=== PATIENT | male | born 1950 | race Caucasian/White ===

== ENCOUNTER 2021-03-27 09:12 | Inpatient (IN) | payer OTHER ==
[2021-03-27 09:55] LABS: Absolute Lymphocytes (CBC) 1.2 K/uL (0.7-4.9); Hematocrit 32.5 % (39.6-49.0); Lymphocytes % 29.4 % (15.3-44.8); MPV 7.8 fL (7.6-11.3); RBC Red Blood Cell Count 3.61 M/uL (4.33-5.43)
[2021-03-27 09:56] LABS: Protime INR 1.15
--- NOTE | 2021-03-27 10:24 | EDPHYS ---
Physician Documentation [facility] Name: Carl Atkinson Age: 70 yrs Sex: Male : 1950 Arrival Date: 03/27/2021 Time: 09:13 Bed 3 Private MD: ED Physician Jimbo Otero HPI: 03/27 10:19 This 70 yrs old Male presents to ER via EMS with complaints of Rectal zenaida Bleeding, Abdominal Pain, Vomiting. 10:19 The patient presents to the emergency department with bleeding from the rectum/anus, zenaida that is moderate. Onset: The symptoms/episode began/occurred today, yesterday. Context: the patient has no known special context relating to the rectal area complaint(s). Modifying factors: The symptoms are alleviated by remaining still, The symptoms are aggravated by nothing. Historical: - Allergies: 09:15 No Known Allergies; sv - PMHx: 09:15 COPD; sv - PSHx: 09:15 C4\T\5 fusion; sv - Immunization history:: Adult Immunizations up to date. - Social history:: Smoking status: Patient uses alcohol, occasionally. ROS: 10:20 Constitutional: Negative for fever, chills, and weight loss, Eyes: Negative for injury, zenaida pain, redness, and discharge, ENT: Negative for injury, pain, and discharge, Neck: Negative for injury, pain, and swelling, Cardiovascular: Negative for chest pain, palpitations, and edema, Respiratory: Negative for shortness of breath, cough, wheezing, and pleuritic chest pain, Back: Negative for injury and pain, : Negative for injury, bleeding, discharge, and swelling, MS/Extremity: Negative for injury and deformity, Skin: Negative for injury, rash, and discoloration, Neuro: Negative for headache, weakness, numbness, tingling, and seizure, Psych: Negative for depression, anxiety, suicide ideation, homicidal ideation, and hallucinations, Allergy/Immunology: Negative for hives, rash, and allergies, Endocrine: Negative for neck swelling, polydipsia, polyuria, polyphagia, and marked weight changes, Hematologic/Lymphatic: Negative for swollen nodes, abnormal bleeding, and unusual bruising. 10:20 Abdomen/GI: Positive for abdominal pain, abdominal cramps. Exam: 10:20 Constitutional: This is a well developed, well nourished patient who is awake, alert, zenaida and in no acute distress. Head/Face: Normocephalic, atraumatic. Eyes: Pupils equal round and reactive to light, extra-ocular motions intact. Lids and lashes normal. Conjunctiva and sclera are non-icteric and not injected. Cornea within normal limits. Periorbital areas with no swelling, redness, or edema. ENT: Nares patent. No nasal discharge, no septal abnormalities noted. Tympanic membranes are normal and external auditory canals are clear. Oropharynx with no redness, swelling, or masses, exudates, or evidence of obstruction, uvula midline. Mucous membranes moist. Neck: Trachea midline, no thyromegaly or masses palpated, and no cervical lymphadenopathy. Supple, full range of motion without nuchal rigidity, or vertebral point tenderness. No Meningismus. Chest/axilla: Normal chest wall appearance and motion. Nontender with no deformity. No lesions are appreciated. Cardiovascular: Regular rate and rhythm with a normal S1 and S2. No gallops, murmurs, or rubs. Normal PMI, no JVD. No pulse deficits. Respiratory: Lungs have equal breath sounds bilaterally, clear to auscultation and percussion. No rales, rhonchi or wheezes noted. No increased work of breathing, no retractions or nasal flaring. Back: No spinal tenderness. No costovertebral tenderness. Full range of motion. Male : Normal genitalia with no discharge or lesions. MS/ Extremity: Pulses equal, no cyanosis. Neurovascular intact. Full, normal range of motion. Neuro: Awake and alert, GCS 15, oriented to person, place, time, and situation. Cranial nerves II-XII grossly intact. Motor strength 5/5 in all extremities. Sensory grossly intact. Cerebellar exam normal. Normal gait. Psych: Awake, alert, with orientation to person, place and time. Behavior, mood, and affect are within normal limits. 10:20 Abdomen/GI: Inspection: abdomen appears normal, Bowel sounds: normal, Palpation: abdomen is soft and non-tender, Rectal exam: Stool: guaiac positive, black, hemorrhoid(s), are not appreciated, mass, is not appreciated, swelling, is not appreciated, Liver: no appreciated palpable abnormalities, Hernia: not appreciated. 10:26 ECG was reviewed by the Attending Physician. [facility] Vital Signs: 09:13 BP 111 / 62; Pulse 75; Resp 14; Temp 97.1; Pulse Ox 100% ; Weight 81.65 kg; Height 6 sv ft. 1 in. (185.42 cm); Pain 10/10; 10:00 BP 89 / 65; Pulse 72; Resp 21; Pulse Ox 100% on R/A; sv 11:00 BP 124 / 65; Pulse 70; Resp 19; Pulse Ox 100% ; sv 11:45 BP 110 / 68; Pulse 73; Resp 20; Pulse Ox 100% on R/A; sv 12:30 BP 116 / 63; Pulse 70; Resp 17; Pulse Ox 100% on R/A; sv 09:13 Body Mass Index 23.75 (81.65 kg, 185.42 cm) sv MDM: 09:32 Patient medically screened. zenaida 10:21 Differential diagnosis: gastritis, varices. Data reviewed: vital signs, nurses notes, [facility] lab test result(s), EKG, radiologic studies, plain films. Data interpreted: threat monitoring analyst: rate is 75 beats/min, rhythm is regular, Pulse oximetry: on room air is 100 %. Test interpretation: by ED physician or midlevel provider: ECG, plain radiologic studies. Counseling: I had a detailed discussion with the patient and/or guardian regarding: the historical points, exam findings, and any diagnostic results supporting the discharge/admit diagnosis, lab results, radiology results, the need for further work-up and treatment in the hospital. 03/27 09:31 Order name: Basic Metabolic Panel; Complete Time: 12:[address] [facility] 03/27 09:31 Order name: CBC with Diff; Complete Time: 12:[address] [facility] 03/27 09:31 Order name: LFT's; Complete Time: 12:[address] [facility] 03/27 09:31 Order name: Magnesium; Complete Time: 12:[address] [facility] 03/27 09:31 Order name: NT PRO-BNP; Complete Time: 12:[address] [facility] 03/27 09:31 Order name: PT-INR; Complete Time: 12:[address] [facility] 03/27 09:31 Order name: Troponin (emerg Dept Use Only); Complete Time: 12:[address] [facility] 03/27 09:31 Order name: Lipase; Complete Time: 12:[address] [facility] 03/27 09:31 Order name: Type And Screen; Complete Time: 12:[address] [facility] 03/27 10:33 Order name: Bb Add On bd 03/27 10:52 Order name: Packed RBC Leukored EDVT 03/27 10:57 Order name: ABO/RH no charge; Complete Time: 12:16 EDVT 03/27 11:42 Order name: Troponin I [facility] 03/27 09:31 Order name: XRAY Chest (1 view); Complete Time: 12:[address] [facility] 03/27 09:31 Order name: EKG; Complete Time: 09:[address] [facility] 03/27 09:31 Order name: Cardiac monitoring; Complete Time: 09:[address] [facility] 03/27 09:31 Order name: EKG - Nurse/Tech; Complete Time: 09:[address] [facility] 03/27 09:31 Order name: IV Saline Lock; Complete Time: 09:[address] [facility] 03/27 09:31 Order name: Labs collected and sent; Complete Time: 09:[address] [facility] 03/27 09:31 Order name: O2 Per Protocol; Complete Time: 09:[address] [facility] 03/27 09:31 Order name: O2 Sat Monitoring; Complete Time: 09:[address] [facility] 03/27 10:03 Order name: CT Head Brain wo Cont; Complete Time: 12:16 03/27 10:03 Order name: CT Abd/Pelvis - IV Contrast Only; Complete Time: 12:16 03/27 11:42 Order name: NPO; Complete Time: 11:50 [facility] 03/27 13:25 Order name: SARS-COV-2 RT PCR EDVT 03/27 09:31 Order name: IV - Large Bore; Complete Time: 09:[address] [facility] 03/27 10:14 Order name: Labs - recollect needed: recollect type and screen. tube hemolyzed; bd Complete Time: 10:35 EC:26 Rate is 78 beats/min. Rhythm is regular. QRS [place] is Normal. MS interval is normal. QRS zenaida interval is normal. QT interval is normal. No Q waves. T waves are Normal. No ST changes noted. Clinical impression: NSR w/ Non-specific ST/T Changes and No evidence of ischemia. Interpreted by me. Reviewed by me. Administered Medications: 10:35 Drug: ProTONIX (pantoprazole) 80 mg Route: IVP; Site: left forearm; sv 11:24 Follow up: Response: No adverse reaction sv 11:24 Drug: NS 0.9% 1000 ml Route: IV; Rate: 1 bolus; Site: left forearm; sv 12:30 Follow up: Response: No adverse reaction; IV Status: Completed infusion; IV Intake: sv 1000ml 11:24 Drug: ProTONIX (pantoprazole) 8 mg/hr Route: IV; Rate: 25 ml/hr; Site: left forearm; sv 13:32 Follow up: Response: No adverse reaction; IV Status: Infusion continued upon admission sv 11:25 Drug: NS 0.9% 1000 ml Route: IV; Rate: 125 ml/hr; Site: left forearm; sv 13:32 Follow up: Response: No adverse reaction; IV Status: Infusion continued upon admission sv Disposition Summary: 03/27/21 10:23 Hospitalization Ordered Hospitalization Status: Inpatient Admission zenaida Provider: Eriberto Holley cha Condition: Stable zenaida Problem: new zenaida Symptoms: have improved zenaida Bed/Room Type: Standard zenaida Location: Telemetry/MedSurg (Inpatient)(03/27/21 15:41) sv Room Assignment: 210(03/27/21 15:41) sv Diagnosis - GI Bleed/ Gastrointestinal hemorrhage, unspecified - upper zenaida - Anemia, unspecified zenaida Forms: - Medication Reconciliation Form zenaida - SBAR form zenaida Signatures: Dispatcher [employer] EDMS Cassy Leigh Stephanie, RN RN sv Anderson, Corey, MD MD zenaida Corrections: (The following items were deleted from the chart) 12:18 11:52 CORONAVIRUS+BRZ ordered. EDMS EDMS 13:05 10:23 Telemetry/MedSurg (Inpatient) zenaida sv 13:05 10:23 zenaida sv 15:34 13:05 [facility] ER HOLD sv bd 15:34 13:05 ERHOLD- sv bd 15:40 15:34 Telemetry/MedSurg (Inpatient) bd sv 15:40 15:34 210 bd sv 15:41 15:40 [facility] ER HOLD sv sv 15:41 15:40 ERHOLD- sv sv
--- NOTE | 2021-03-27 10:24 | ER ---
Nurse's Notes [facility] Name: Carl Atkinson Age: 70 yrs Sex: Male : 1950 Arrival Date: 03/27/2021 Time: 09:13 Bed 3 Private MD: Diagnosis: GI Bleed/ Gastrointestinal hemorrhage, unspecified-upper;Anemia, unspecified Presentation: 03/27 09:13 Chief complaint: EMS states: found by family laying on the floor of the bathroom, sv unknown downtime. Pt vomited dark red blood and had dark red stools. c/o neck pain from vomiting and abd pain. Coronavirus screen: Vaccine status: Patient reports receiving the 1st dose of the Covid vaccine. J\T\J. Ebola Screen: No symptoms or risks identified at this time. Initial Sepsis Screen: Does the patient meet any 2 criteria? No. Patient's initial sepsis screen is negative. Does the patient have a suspected source of infection? No. Patient's initial sepsis screen is negative. Risk Assessment: Do you want to hurt yourself or someone else? Patient reports no desire to harm self or others. Onset of symptoms was March 27, 2021. 09:13 Method Of Arrival: [facility] sv 09:13 Acuity: LEONIDAS 3 sv Triage Assessment: 09:15 General: Appears in no apparent distress. uncomfortable, slender, well developed, sv Behavior is calm, cooperative, appropriate for age. Pain: Complains of pain in abdomen. Neuro: Level of Consciousness is awake, alert, obeys commands, Oriented to person, place, time, situation, Gait is steady. Respiratory: Airway is patent Respiratory effort is even, unlabored, Respiratory pattern is regular, symmetrical. GI: Abdomen is flat, Reports rectal bleeding, nausea, vomiting. Derm: Skin is intact, Skin is pink, warm \T\ dry. Historical: - Allergies: 09:15 No Known Allergies; sv - PMHx: 09:15 COPD; sv - PSHx: 09:15 C4\T\5 fusion; sv - Immunization history:: Adult Immunizations up to date. - Social history:: Smoking status: Patient uses alcohol, occasionally. Screenin:16 Abuse screen: Denies threats or abuse. Denies injuries from another. Nutritional sv screening: No deficits noted. Tuberculosis screening: No symptoms or risk factors identified. Fall Risk None identified. Assessment: 10:35 Reassessment: Patient appears in no apparent distress at this time. No changes from sv previously documented assessment. Patient and/or family updated on plan of care and expected duration. Pain level reassessed. Patient is alert, oriented x 3, equal unlabored respirations, skin warm/dry/pink. 11:24 Reassessment: Patient appears in no apparent distress at this time. No changes from sv previously documented assessment. Patient and/or family updated on plan of care and expected duration. Pain level reassessed. Patient is alert, oriented x 3, equal unlabored respirations, skin warm/dry/pink. 13:04 Reassessment: Patient appears in no apparent distress at this time. Patient and/or sv family updated on plan of care and expected duration. Pain level reassessed. Patient is alert, oriented x 3, equal unlabored respirations, skin warm/dry/pink. Vital Signs: 09:13 BP 111 / 62; Pulse 75; Resp 14; Temp 97.1; Pulse Ox 100% ; Weight 81.65 kg; Height 6 sv ft. 1 in. (185.42 cm); Pain 10/10; 10:00 BP 89 / 65; Pulse 72; Resp 21; Pulse Ox 100% on R/A; sv 11:00 BP 124 / 65; Pulse 70; Resp 19; Pulse Ox 100% ; sv 11:45 BP 110 / 68; Pulse 73; Resp 20; Pulse Ox 100% on R/A; sv 12:30 BP 116 / 63; Pulse 70; Resp 17; Pulse Ox 100% on R/A; sv 09:13 Body Mass Index 23.75 (81.65 kg, 185.42 cm) sv ED Course: 09:13 Patient arrived in ED. sv 09:13 Aline Lugo, RN is Primary Nurse. sv 09:15 Triage completed. sv 09:15 Arm band placed on. sv 09:16 Patient has correct armband on for positive identification. Placed in gown. Bed in low sv position. Call light in reach. Side rails up X2. bus monitor on. Pulse ox on. NIBP on. Door closed. Head of bed elevated. 09:25 Jimbo Otero MD is Attending Physician. [facility] 09:30 Inserted saline lock: 20 gauge in left forearm, using aseptic technique. Blood sv collected. Flushed left forearm with 2 ml normal saline. 09:30 T\T\S collected, blood band applied to patient. sv 10:20 XRAY Chest (1 view) In Process Unspecified. EDMS 10:23 Eriberto Holley MD is Hospitalizing Provider. zenaida 10:30 T\T\S collected, blood band applied to patient. sv 10:[address] via stretcher. sv 10:43 CT Head Brain wo Cont In Process Unspecified. EDMS 10:45 CT Abd/Pelvis - IV Contrast Only In Process Unspecified. EDMS 10:[address] Patient moved back from [address]. sv 13:04 No provider procedures requiring assistance completed. Patient admitted, IV remains in sv place. intact. Administered Medications: 10:35 Drug: ProTONIX (pantoprazole) 80 mg Route: IVP; Site: left forearm; sv 11:24 Follow up: Response: No adverse reaction sv 11:24 Drug: NS 0.9% 1000 ml Route: IV; Rate: 1 bolus; Site: left forearm; sv 12:30 Follow up: Response: No adverse reaction; IV Status: Completed infusion; IV Intake: sv 1000ml 11:24 Drug: ProTONIX (pantoprazole) 8 mg/hr Route: IV; Rate: 25 ml/hr; Site: left forearm; sv 13:32 Follow up: Response: No adverse reaction; IV Status: Infusion continued upon admission sv 11:25 Drug: NS 0.9% 1000 ml Route: IV; Rate: 125 ml/hr; Site: left forearm; sv 13:32 Follow up: Response: No adverse reaction; IV Status: Infusion continued upon admission sv Intake: 12:30 IV: 1000ml; Total: 1000ml. sv Outcome: 10:23 Decision to Hospitalize by Provider. zenaida 13:04 Admitted to ER Hold. Please see [facility] for further documentation. sv 13:04 Condition: stable 13:04 Instructed on the need for admit. 16:26 Patient left the ED. sv Signatures: Dispatcher [employer] Aline Donato RN RN sv Anderson, Corey, MD MD cha
[2021-03-27 10:25] LABS: ALT/SGPT 108 U/L (12-78); AST/SGOT 111 U/L (15-37); Alkaline Phosphatase 65 U/L (45-117); BUN Blood Urea Nitrogen 44 mg/dL (7-18); Bicarbonate 23 mmol/L (21-32); Bilirubin Direct 0.3 mg/dL (0-0.2); Bilirubin Total 0.8 mg/dL (0.2-1.0); Glucose Level 95 mg/dL (74-106); Lipase 79 U/L (73-393); NT PRO-BNP 85 pg/mL (<125); Potassium 4.5 mmol/L (3.5-5.1); Protein, Total 6.9 g/dL (6.4-8.2); Sodium Level 140 mmol/L (136-145); Troponin (Emerg Dept Use Only) < 0.02 ng/mL (0.0-0.045)
--- NOTE | 2021-03-27 10:31 | RAD REPORT ---
EXAM DESCRIPTION: RAD - Chest Single View - 03/27/2021 10:20 am CLINICAL HISTORY: COUGH COMPARISON: No comparisons FINDINGS: Lines: None. Lungs: No evidence of edema or pneumonia. Pleural: No significant pleural effusions or pneumothorax. Cardiac: The heart size is within normal limits. Bones: No acute fractures. Other: IMPRESSION: No acute cardiopulmonary disease.
[2021-03-27] MEDS ORDERED: PANTOPRAZOLE 40 MG INJ ONE (10:52)
[2021-03-27] MEDS ORDERED: NA CHLORIDE 0.9% 2,000 ML ONE (10:52)
--- NOTE | 2021-03-27 10:56 | RAD REPORT ---
EXAM DESCRIPTION: CT - Head Brain Wo Cont - 03/27/2021 10:43 am CLINICAL HISTORY: WEAKNESS COMPARISON: No comparisons TECHNIQUE: All CT scans are performed using dose optimization technique as appropriate and may inclu de automated exposure control or mA/KV adjustment according to patient size. FINDINGS: No intracranial hemorrhage, hydrocephalus or extra-axial fluid collection.No areas of brai n edema or evidence of midline shift. The paranasal sinuses and mastoids are clear. The calvarium is intact. IMPRESSION: No acute intracranial abnormality.
[2021-03-27] MEDS: PANTOPRAZOLE INJ 80 MG in NA CHLORIDE 0.9% 250 ML IV SCH ×3 (11:00→22:19)
--- NOTE | 2021-03-27 11:05 | RAD REPORT ---
EXAM DESCRIPTION: CTAbdomen Pelvis W Contrast - 03/27/2021 10:45 am CLINICAL HISTORY: . ABD PAIN COMPARISON: No comparisons TECHNIQUE: Biphasic CT imaging of the abdomen and pelvis was performed with 100 ml non-ionic IV cont rast. All CT scans are performed using dose optimization technique as appropriate and may include automated exposure control or mA/KV adjustment according to patient size. FINDINGS: Lower chest: Small hiatal hernia. Lower paraesophageal and esophageal varices are present. Liver: Nodular liver configuration. Biliary: No biliary ductal dilatation. Stomach: No significant focal abnormality. Duodenum: No significant focal abnormality. Pancreas: No significant abnormality. Spleen: No significant abnormality. Adrenal: No suspicious lesions. Kidney/ureter: No hydronephrosis. No renal calculi. Too small to characterize and/or benign appearing renal lesions are noted. Retroperitoneum: Prominent portacaval lymph nodes. Vascular: No aneurysm. Atherosclerosis. Bowel: The ascending and transverse colon are thickened. Peritoneum: There is small volume of free fluid scattered throughout the abdomen including in the Bladder: Grossly unremarkable. Reproductive: No adnexal masses. Bones: No acute fracture. Other: n/a IMPRESSION: Cirrhosis and evidence of portal hypertension including paraesophageal and esophageal va rices. Small volume of free fluid is present within the abdomen and pelvis that is nonspecific and co uld be secondary to either portal hypertension or an alternate process. Ascending and transverse colo britni wall thickening possibly representing colitis but can also be seen in the setting of portal colop athy.
[2021-03-27] MEDS ORDERED: LABETALOL 20 MG/4ML SYRINGE IV PRN (11:36)
[2021-03-27] MEDS ORDERED: ONDANSETRON 4 MG/2 ML VIAL IV PRN (11:37)
[2021-03-27] MEDS ORDERED: MORPHINE 4 MG/ML SYR IV PRN (11:40)
--- NOTE | 2021-03-27 11:50 | P.HP ---
Certification for Inpatient Patient admitted to: Inpatient Patient will require the following post-hospital care: None Practitioner: I am a practitioner with admitting privileges, knowledge of patient current condition, hospital course, and medical plan of care. Services: Services provided to patient in accordance with Admission requirements found in Title 42 Section 412.3 of the Code of Federal Regulations <Herminia Mosquera - Last Filed: 03/27/21 17:44> Patient History Date of Service: 03/27/21 Reason for admission: GI bleeding History of Present Illness: Patient is a 70-year-old male with a past medical history significant for COPD and liver cirrhosis who presents with complaint of rectal bleeding and hematemesis that has been ongoing for the past 2 days. Patient reports associated signs and symptoms of dizziness and near syncope. Patient denies any other signs or symptoms. Symptoms are aggravated or relieved by nothing. Magaly ent decided to present to the hospital due to worsening symptoms. - Past Medical/Surgical History Diabetic: No -: Cirrhosis -: COPD. Past Surgical History: Reviewed- Non-Contributory - Family History Family History: Reviewed- Non-Contributory - Social History Smoking Status: Former smoker Alcohol use: Yes CD- Drugs: No Caffeine use: No Place of Residence: Home <Herminia Mosquera - Last Filed: 03/27/21 17:44> Date of Service: 03/27/21 <Eriberto Holley - Last Filed: 03/29/21 11:06> Allergies No Known Allergies Allergy (Unverified 03/27/21 11:35) Home Medications: Albuterol Inhaler [Ventolin Inhaler] 2 puff IH Q6H PRN 03/27/21 Ibuprofen 3 tab PO DAILY 03/27/21 Tiotropium [place] [Spiriva Respimat] 2 puff IH DAILY 03/27/21 Review of Systems General: Unremarkable Eyes: Unremarkable ENT: Unremarkable Respiratory: Unremarkable Cardiovascular: Unremarkable Gastrointestinal: Other (Rectal bleeding and hematemesis.) Genitourinary: Unremarkable Musculoskeletal: Unremarkable Integumentary: Unremarkable Neurological: Other (Dizziness and near syncope.), Unremarkable Lymphatics: Unremarkable <Herminia Mosquera - Last Filed: 03/27/21 17:44> Physical Examination - Physical Exam General: Alert, In no apparent distress, Oriented x3 HEENT: Atraumatic, PERRLA, Mucous membr. moist/pink, EOMI, Sclerae nonicteric Neck: Supple, 2+ carotid pulse no bruit, No LAD, Without JVD or thyroid abnormality Respiratory: Clear to auscultation bilaterally, Normal air movement Cardiovascular: Regular rate/rhythm, Normal S1 S2 Gastrointestinal: Normal bowel sounds, No tenderness Musculoskeletal: No clubbing, No tenderness Integumentary: No rashes Neurological: Normal gait, Normal speech, Normal strength at 5/5 x4 extr, Normal tone, Normal affect Lymphatics: No axilla or inguinal lymphadenopathy External genitalia: Deferred Rectal: Deferred - Studies Laboratory Data (last 24 hrs) 03/27/21 09:30: PT 13.3 H, INR 1.15 03/27/21 09:30: WBC 4.00 L, Hgb 10.9 L, Hct 32.5 L, Plt Count 127 L 03/27/21 09:30: Sodium 140, Potassium 4.5, BUN 44 H, Creatinine 0.89, Glucose 95, Magnesium 2.0, Total Bilirubin 0.8, AST 111 H, ALT 108 H, Alkaline Phosphatase 65, Lipase 79 <Herminia Mosquera - Last Filed: 03/27/21 17:44> Assessment and Plan - Plan --Gastrointestinal bleeding. H&H stable. Gastroenterology is consulted. We will further recommendation. --Decompensated cirrhosis. CT imaging indicates portal hypertension with paraesophageal and esophageal varices. Security Operations Engineer on board. Will await further recommendations. --Colitis. Noted on CT imaging. Patient placed on antibiotics. --COPD. Stable. Continue supportive care. --Blood loss anemia. H&H stable. We will continue to monitor hemoglobin and transfuse if less than 7.0. --Near syncope. Likely secondary to GIB. H&H stable. Continue supportive care. --Thrombocytopenia. Secondary to liver disease. Continue supportive care. --DVT prophylaxis with SCDs. I have had discussion about advanced directives with the patient during this hospital admission. Addressed code status and /or goals of care. Spent more than 15 minutes. Case discussed withpatient and nurse. The following document was completed using voice recognition software. This can produce archeology professor errors that can at times significantly distort words and phrases. Please interpret any aspect of the note that is nonsensical in light of this fact. Discharge Plan: Home Plan to discharge in: 48 Hours - Advance Directives Does patient have a Living Will: No Does patient have a Durable POA for Healthcare: No - Code Status/Comfort Care Code Status Assessed: Yes Code Status: Full Code Physician Review: Patient Assessed, Agree with Above Assessment and Plan Critical Care: No <Herminia Mosquera - Last Filed: 03/27/21 17:44> - Problems (Diagnosis) (1) UGIB (upper gastrointestinal bleed) Current Visit: Yes Status: Acute (2) Melena Current Visit: Yes Status: Acute <Falguni Holleymiguel angel Taylor - Last Filed: 03/29/21 11:06> Date of Service: 03/27/21 Subjective Reviewed plan of care as mentioned above Review of Systems 10-point ROS is otherwise unremarkable Physical Examination - Vital Signs Reviewed - Physical Exam General: Alert, In no apparent distress, Oriented x3 Respiratory: Diminished Cardiovascular: Regular rate/rhythm, Normal S1 S2, No murmurs Gastrointestinal: Normal bowel sounds, Soft and benign, Non-distended, No tenderness Musculoskeletal: No clubbing, No swelling, No tenderness Integumentary: No rashes Neurological: Sensation intact, Cranial nerves 3-12 intact - Studies Medications List Reviewed: Yes Assessment & Plan - Problems (Diagnosis) (1) UGIB (upper gastrointestinal bleed) Current Visit: Yes Status: Acute (2) Melena Current Visit: Yes Status: Acute - Plan Plan: 1. Continue with IV hydration and PPI drip 2. Continue with IV antibiotics 3. Continue with pain control 4. NPO 5. GI consultation 6. Serial H&H, and we will monitor LFTs and lipase along with electrolytes. 7. GI and DVT prophylaxis Discharge Plan: Home Plan to discharge in: Greater than 2 days - Advance Directives Does patient have a Living Will: No Does patient have a Durable POA for Healthcare: No - Code Status/Comfort Care Code Status: Full Code Physician Review: Patient Assessed, Agree with Above Assessment and Plan Critical Care: No Time Spent Managing PTS Care (In Minutes): 45 <Falguni Holleymiguel angel Vazquez - Last Filed: 03/29/21 11:06>
[2021-03-27 17:02] VITALS: BMI 22.5
[2021-03-27 18:05] LABS: Absolute Lymphocytes (CBC) 1.2 K/uL (0.7-4.9)
[2021-03-27 18:13] LABS: Basophils % 0.8 % (0-1.3); Hematocrit 27.9 % (39.6-49.0); Lymphocytes % 33.3 % (15.3-44.8); MPV 8.2 fL (7.6-11.3); RBC Red Blood Cell Count 3.12 M/uL (4.33-5.43)
[2021-03-27 20:22] LABS: Blood Morphology Comment NOT SEEN (NOT SEEN); Platelet Estimate DECR; White Blood Cell Scan OK (OK)
[2021-03-27 20:47] LABS: Urine Appearance CLEAR (Clear); Urine Bilirubin NEGATIVE (Negative); Urine Blood NEGATIVE (Negative); Urine Color YELLOW (Yellow); Urine Glucose NEGATIVE (Negative); Urine Protein NEGATIVE (Negative); Urine Specific Gravity >=1.030 (1.005-1.030); Urine pH 5.5 (5.0-7.0)
[2021-03-27 20:57] LABS: Urine Microscopic Reflex NO UMIC
[2021-03-27] MEDS ORDERED: PANTOPRAZOLE INJ 80 MG in NA CHLORIDE 0.9% 250 ML IV SCH (21:00)
[2021-03-27] MEDS: METRONIDAZOLE 500mg IVPB 500 MG/100 ML BAG IV SCH (22:15)
[2021-03-27] MEDS: CIPROFLOXACIN 400mg IV 400 MG/200 ML BAG IV SCH (22:19)
[2021-03-27] MEDS ORDERED: NA CHLORIDE 0.9% 250 ML ONE (22:35)
[2021-03-28] MEDS ORDERED: PANTOPRAZOLE INJ 80 MG in NA CHLORIDE 0.9% 250 ML IV SCH ×2
[2021-03-28] MEDS: METRONIDAZOLE 500mg IVPB 500 MG/100 ML BAG IV SCH ×3 (02:04→17:00)
[2021-03-28 05:59] LABS: Absolute Lymphocytes (CBC) 1.2 K/uL (0.7-4.9); Basophils % 0.6 % (0-1.3); Lymphocytes % 23.4 % (15.3-44.8); MPV 7.7 fL (7.6-11.3); RBC Red Blood Cell Count 2.78 M/uL (4.33-5.43)
[2021-03-28 06:07] LABS: Potassium 4.1 mmol/L (3.5-5.1)
[2021-03-28 06:18] LABS: Protime INR 1.09
[2021-03-28 07:56] LABS: Blood Morphology Comment NOT SEEN (NOT SEEN); Platelet Estimate DECR; White Blood Cell Scan OK (OK)
[2021-03-28] MEDS: PANTOPRAZOLE INJ 80 MG in NA CHLORIDE 0.9% 250 ML IV SCH ×3 (09:36→22:05)
[2021-03-28] MEDS: CIPROFLOXACIN 400mg IV 400 MG/200 ML BAG IV SCH ×2 (09:37→21:12)
--- NOTE | 2021-03-28 11:30 | EKG ---
Test Date: 2021-03-27 Test Time: 09:29:57 Sample Steamer: DAVID MEASUREMENT RESULTS: Intervals: Rate: 78 TX: 108 QRSD: 58 QT: 384 QTc: 437 [place]: P: 18 TX: 108 QRS: 18 T: -30 INTERPRETIVE STATEMENTS: Sinus rhythm with short TX with premature atrial complexes Nonspecific ST abnormality Abnormal ECG No previous ECG available for comparison Electronically Signed On 03-28-21 11:27:07 CDT by Jason Davis
[2021-03-28] MEDS ORDERED: Ringers Lactate 1,000 ML IV ONE (14:47)
[2021-03-28] MEDS ORDERED: LIDOCAINE 1% MPF 5 ML VIAL ONE (15:55)
[2021-03-28] MEDS ORDERED: propofoL 200 MG/20 ML VIAL IV ONE ×2 (15:55)
[2021-03-28] MEDS ORDERED: ONDANSETRON 4 MG/2 ML VIAL ONE (16:28)
[2021-03-28] MEDS: OCTREOTIDE 500 MCG in NA CHLORIDE 0.9% 500 ML IV SCH (23:32)
[2021-03-28] MEDS ORDERED: OCTREOTIDE ACETATE 500 MCG/ML ONE (23:41)
[2021-03-28] MEDS ORDERED: NA CHLORIDE 0.9% 500 ML ONE (23:44)
[2021-03-29] MEDS: METRONIDAZOLE 500mg IVPB 500 MG/100 ML BAG IV SCH ×3 (00:39→17:16)
[2021-03-29] MEDS: PANTOPRAZOLE INJ 80 MG in NA CHLORIDE 0.9% 250 ML IV SCH ×4 (04:00→17:55)
[2021-03-29] MEDS: OCTREOTIDE 500 MCG in NA CHLORIDE 0.9% 500 ML IV SCH ×4 (05:19→19:00)
[2021-03-29 06:00] LABS: Absolute Lymphocytes (CBC) 0.9 K/uL (0.7-4.9); Basophils % 0.7 % (0-1.3); Lymphocytes % 30.9 % (15.3-44.8); MPV 8.1 fL (7.6-11.3); RBC Red Blood Cell Count 2.86 M/uL (4.33-5.43)
[2021-03-29] MEDS: CIPROFLOXACIN 400mg IV 400 MG/200 ML BAG IV SCH ×2 (08:18→21:00)
--- NOTE | 2021-03-29 11:01 | P.PN ---
Subjective Date of Service: 03/28/21 Pt is doing well; scheduled for EGD today. Continue NPO for now. Review of Systems 10-point ROS is otherwise unremarkable Physical Examination - Vital Signs Temperature: 98.9 F Blood Pressure: 127/73 Pulse: 75 Respirations: 16 Pulse Ox (%): 100 - Physical Exam General: Alert, In no apparent distress, Oriented x3 Respiratory: Diminished Cardiovascular: Regular rate/rhythm, Normal S1 S2, No murmurs Gastrointestinal: Normal bowel sounds, Soft and benign, Non-distended, No tenderness Musculoskeletal: No clubbing, No swelling, No tenderness Integumentary: No rashes Neurological: Sensation intact, Cranial nerves 3-12 intact - Studies Medications List Reviewed: Yes Assessment & Plan - Problems (Diagnosis) (1) UGIB (upper gastrointestinal bleed) Current Visit: Yes Status: Acute (2) Melena Current Visit: Yes Status: Acute - Plan Plan: 1. Continue with IV hydration and PPI drip 2. Continue with IV antibiotics 3. Continue with pain control 4. NPO 5. GI consultation 6. Serial H&H, and we will monitor LFTs and lipase along with electrolytes. 7. GI and DVT prophylaxis Discharge Plan: Home Plan to discharge in: Greater than 2 days - Advance Directives Does patient have a Living Will: No Does patient have a Durable POA for Healthcare: No - Code Status/Comfort Care Code Status: Full Code Physician Review: Patient Assessed, Agree with Above Assessment and Plan Critical Care: No Time Spent Managing PTS Care (In Minutes): 45
--- NOTE | 2021-03-29 15:18 | OP ---
Surgeon: Philip Sebastian MD Procedure Performed: Esophagogastroduodenoscopy. Indication For Procedure: Upper GI bleed. Plan For Anesthesia: Monitored anesthesia care. Complexity: Average. Technique: After obtaining informed consent from the patient explaining risks and complications, whi ch include, but are not limited to bleeding, infection, perforation, and anesthesia complications, th e patient was placed in the left lateral position and sedation was given. From then on, the scope wa s advanced to the mouth and carefully guided up to the second portion of the duodenum. No evidence o f active bleeding was seen, but stigmata that may increase risk of bleeding in the future were visual ized and treated as detailed below. Findings: Duodenum: No significant abnormality seen in the entire examined duodenum. Stomach: Mild patchy erythema in the antrum and body. Biopsies taken. Esophagus: Esophagitis was seen in the distal portion as well as grade 3 varices. Some of them had red signs. None of them had sign of recent bleeding. Due to the absence of other findings, 4 bands were successful placed in the esophagus. Complications: None. Tolerance To Anesthesia: Excellent. Postoperative Diagnoses: Esophageal varices, status post banding, gastritis. Plan: 1.Await pathology results. 2.PPI and octreotide. 3.N.p.o. for today. Start clear liquids tomorrow. We will need staged banding in 4 weeks' time. W e will schedule liver workup as an outpatient basis. US/MODL Voice ID: [id number] Report ID: [id number]
[2021-03-30] MEDS: METRONIDAZOLE 500mg IVPB 500 MG/100 ML BAG IV SCH ×3 (01:00→18:11)
[2021-03-30] MEDS: PANTOPRAZOLE INJ 80 MG in NA CHLORIDE 0.9% 250 ML IV SCH ×4 (10:00→18:09)
[2021-03-30] MEDS: OCTREOTIDE 500 MCG in NA CHLORIDE 0.9% 500 ML IV SCH ×2 (10:38→15:00)
[2021-03-30] MEDS: CIPROFLOXACIN 400mg IV 400 MG/200 ML BAG IV SCH ×2 (10:39→20:59)
[2021-03-30] MEDS: LACTULOSE 20 GM/30 ML UCUP PO SCH ×3 (11:00→23:58)
[2021-03-30 11:19] LABS: Protime INR 1.14
[2021-03-30 11:21] LABS: Absolute Lymphocytes (CBC) 0.8 K/uL (0.7-4.9); Basophils % 1.2 % (0-1.3); Hematocrit 25.6 % (39.6-49.0); Lymphocytes % 25.2 % (15.3-44.8); RBC Red Blood Cell Count 2.82 M/uL (4.33-5.43)
[2021-03-30 11:37] LABS: Albumin 2.6 g/dL (3.4-5.0); Bilirubin Direct 0.3 mg/dL (0-0.2); Bilirubin Total 0.7 mg/dL (0.2-1.0); Folic Acid, (Folate) 16.2 ng/mL (3.1-17.5); Magnesium 1.9 mg/dL (1.8-2.4); Phosphorus 2.2 mg/dL (2.5-4.9); Protein, Total 6.3 g/dL (6.4-8.2)
[2021-03-30] MEDS ORDERED: ALBUTEROL INHALER 60 PUFF/8 GM IH PRN (17:25)
[2021-03-31] MEDS: METRONIDAZOLE 500mg IVPB 500 MG/100 ML BAG IV SCH ×2 (01:16→08:38)
[2021-03-31] MEDS: OCTREOTIDE 500 MCG in NA CHLORIDE 0.9% 500 ML IV SCH ×2 (02:18→11:53)
[2021-03-31] MEDS: LACTULOSE 20 GM/30 ML UCUP PO SCH ×2 (04:09→11:52)
[2021-03-31 06:07] LABS: Phosphorus 2.8 mg/dL (2.5-4.9); Potassium 3.9 mmol/L (3.5-5.1)
[2021-03-31] MEDS: PANTOPRAZOLE INJ 80 MG in NA CHLORIDE 0.9% 250 ML IV SCH (06:21)
[2021-03-31] MEDS: CIPROFLOXACIN 400mg IV 400 MG/200 ML BAG IV SCH (08:37)
[2021-03-31] MEDS ORDERED: POTASSIUM 25 MEQ EFFERV TAB PO ONE (09:00)
[2021-03-31] MEDS ORDERED: HOME MED 1 EA UNK (Tiotropium Bromide [Spiriva Respimat] 4 GM Mist.Inhal) IH SCH (09:00)
[2021-03-31 10:29] VITALS: O2SAT 98
[2021-03-31 13:28] VITALS: BP 118/70; TEMP 98.8
--- NOTE | 2021-04-02 01:00 | P.PN ---
Date of Service: 03/29/21 Subjective Patient is doing better. Continue with NPO. Status post blood transfusion. Patient was given 2 units of packed red blood cells. Scheduled for EGD. Review of Systems 10-point ROS is otherwise unremarkable Physical Examination - Vital Signs Reviewed - Physical Exam General: Alert, In no apparent distress, Oriented x3 Respiratory: Diminished Cardiovascular: Regular rate/rhythm, Normal S1 S2, No murmurs Gastrointestinal: Normal bowel sounds, Soft and benign, Non-distended, No tenderness Musculoskeletal: No clubbing, No swelling, No tenderness Neurological: Sensation intact, Cranial nerves 3-12 intact Assessment & Plan - Problems (Diagnosis) (1) UGIB (upper gastrointestinal bleed) Current Visit: Yes Status: Acute (2) Melena Current Visit: Yes Status: Acute - Plan Continue with plan of care as mentioned below 1. Continue with IV hydration and PPI drip 2. Continue with IV antibiotics 3. Continue with pain control 4. NPO; endoscopy in a.m. 5. GI consultation appreciated 6. Serial H&H, and we will monitor LFTs and lipase along with electrolytes. 7. GI and DVT prophylaxis Discharge Plan: Home Plan to discharge in: Greater than 2 days - Advance Directives Does patient have a Living Will: No Does patient have a Durable POA for Healthcare: No - Code Status/Comfort Care Code Status: Full Code Physician Review: Patient Assessed, Agree with Above Assessment and Plan Critical Care: No Time Spent Managing PTS Care (In Minutes): 45
--- NOTE | 2021-04-02 01:01 | P.PN ---
Date of Service: 03/30/21 Subjective Patient is doing much better. The EGD revealed esophageal varices with banding. Hemoglobin has stabilize. Review of Systems 10-point ROS is otherwise unremarkable Physical Examination - Vital Signs Reviewed - Physical Exam General: Alert, In no apparent distress, Oriented x3 Respiratory: Diminished Cardiovascular: Regular rate/rhythm, Normal S1 S2, No murmurs Gastrointestinal: Normal bowel sounds, Soft and benign, Non-distended, No tenderness Musculoskeletal: No clubbing, No swelling, No tenderness Neurological: Sensation intact, Cranial nerves 3-12 intact Assessment & Plan - Problems (Diagnosis) (1) UGIB (upper gastrointestinal bleed) Current Visit: Yes Status: Acute (2) Melena Current Visit: Yes Status: Acute - Plan Continue with plan of care as mentioned below 1. Continue with octreotide and PPI. 2. Continue with IV antibiotics 3. Continue with pain control 4. status post endoscopy 5. GI consultation appreciated 6. Serial H&H, and we will monitor LFTs and lipase along with electrolytes. 7. GI and DVT prophylaxis Discharge Plan: Home Plan to discharge in: Greater than 2 days - Advance Directives Does patient have a Living Will: No Does patient have a Durable POA for Healthcare: No - Code Status/Comfort Care Code Status: Full Code Physician Review: Patient Assessed, Agree with Above Assessment and Plan Critical Care: No Time Spent Managing PTS Care (In Minutes): 45
--- NOTE | 2021-04-02 01:03 | P.DS ---
Discharge Date: 03/31/21 Disposition: ROUTINE DISCHARGE Discharge Condition: GOOD Reason for Admission: GI bleeding - Problems (1) UGIB (upper gastrointestinal bleed) Status: Acute (2) Melena Status: Acute Brief History of Present Illness: Patient is a 70-year-old male with a past medical history significant for COPD and liver cirrhosis who presents with complaint of rectal bleeding and hematemesis that has been ongoing for the past 2 days. Patient reports associated signs and symptoms of dizziness and near syncope. Patient denies any other signs or symptoms. Symptoms are aggravated or relieved by nothing. Patient decided to present to the hospital due to worsening symptoms. Hospital Course: Patient is doing well with no new complaints. Patient is hemoglobin has been stable. Patient was given 2 units of packed red blood cells and hemoglobin is stable. Continue with medications for cirrhosis. Patient on propanolol, Lasix, Aldactone. Patient will also be on Protonix and Carafate. Anticipate discharge today with outpatient follow-up. Vital Signs/Physical Exam: Temp Pulse Resp BP Pulse Ox 98.8 F 63 18 118/70 99 03/31/21 12:00 03/31/21 12:00 03/31/21 12:00 03/31/21 12:00 03/31/21 12:00 General: Alert, In no apparent distress, Oriented x3 Laboratory Data at Discharge: WBC 3.10 K/uL (4.3-10.9) L 03/30/21 10:38 Hgb 8.6 g/dL (13.6-17.9) L 03/30/21 10:38 Hct 25.6 % (39.6-49.0) L 03/30/21 10:38 Plt Count 88 K/uL (152-406) L 03/30/21 10:38 PT 13.1 SECONDS (9.5-12.5) H 03/30/21 10:38 INR 1.14 03/30/21 10:38 APTT 26.0 SECONDS (24.3-36.9) 03/30/21 10:38 Sodium 142 mmol/L (136-145) 03/31/21 05:18 Potassium 3.9 mmol/L (3.5-5.1) 03/31/21 05:18 BUN 6 mg/dL (7-18) L 03/31/21 05:18 Creatinine 0.87 mg/dL (0.55-1.3) 03/31/21 05:18 Glucose 102 mg/dL (74-106) 03/31/21 05:18 Phosphorus 2.8 mg/dL (2.5-4.9) 03/31/21 05:18 Magnesium 1.9 mg/dL (1.8-2.4) 03/30/21 10:38 Total Bilirubin 0.7 mg/dL (0.2-1.0) 03/30/21 10:38 AST 111 U/L (15-37) H 03/30/21 10:38 ALT 91 U/L (12-78) H 03/30/21 10:38 Alkaline Phosphatase 60 U/L (45-117) 03/30/21 10:38 Troponin I < 0.02 ng/mL (0.0-0.045) 03/27/21 17:08 Lipase 79 U/L (73-393) 03/27/21 09:30 Home Medications: Albuterol Inhaler [Ventolin Inhaler*] 2 puff IH Q6H PRN 03/27/21 Tiotropium [place] [Spiriva Respimat] 2 puff IH DAILY 03/27/21 Furosemide [Lasix] 20 mg PO BIDL #60 tab 03/30/21 Lactulose 30 ml PO Q12H #2000 ml 03/30/21 Propranolol HCl 20 mg PO BID #60 tablet 03/30/21 Pantoprazole [Protonix Tab] 40 mg PO Q12H #60 tab 03/31/21 Sucralfate [Carafate*] 1 gm PO ACHS #120 tab 03/31/21 New Medications: Sucralfate [Carafate*] 1 gm PO ACHS #120 tab Lactulose 30 ml PO Q12H #2000 ml Furosemide [Lasix] 20 mg PO BIDL #60 tab Propranolol HCl 20 mg PO BID #60 tablet Pantoprazole [Protonix Tab] 40 mg PO Q12H #60 tab Physician Discharge Instructions: OK TO DC IV AND DC home FOLLOW-UP WITH PRIMARY CARE PROVIDER IN 1-2 WEEKS FOLLOW-UP WITH Gastroenterology IN 1-2 WEEKS RETURN TO THE ER IF symptoms worsen CALL or TEXT DR. BLOOM AT [phone] IF ANY QUESTIONS REGARDING HOSPITAL STAY. PLEASE CALL THE FLOOR AT [phone] IF ANY MEDICATION OR NURSING QUESTIONS. Diet: AHA Activity: Fall precautions Followup: NONE,NONE [Primary Care Provider] - Philip Sebastian MD [ACTIVE - CAN ADMIT] - Time spent managing pt's care (in minutes): 35
[2021-04-03 12:22] LABS: HBsAG Nonreactive (Nonreactive)
[2021-04-04 21:52] LABS: Hep C Virus RNA (PCR)log 6.39 log IU/mL
== END 2021-03-31 15:13 | disposition home or self-care (01) | DRG 370 ==
LOC: ER 09:12 → ERHOLD 12:44 → 2ND 16:17
PROVIDERS: ADMIT Hospitalist; ATTEND Hospitalist
PROC: 06L38CZ Occlusion of Esophageal Vein with Extraluminal Device, Via Natural or Artificial Opening Endoscopic (ICD-10-PCS; principal; 2021-03-28 14:30)
DX: I85.01 Esophageal varices with bleeding (principal); D50.0 Iron deficiency anemia secondary to blood loss (chronic); K74.60 Unspecified cirrhosis of liver; K52.9 Noninfective gastroenteritis and colitis, unspecified; D69.6 Thrombocytopenia, unspecified; J44.9 Chronic obstructive pulmonary disease, unspecified; Z20.822 Contact with and (suspected) exposure to COVID-19
CPT/HCPCS: 36415; 70450; 71045; 74177; 80048; 80074; 80076; 81003; 82140; 82607; 82746; 83540; 83690; 83735; 83880; 84100; 84484; 85025; 85044; 85610; 85730; 86850; 86900; 86901; 87522; 88305; 88312; 93005; 96365; 96366; 99285; C9113; J0744; J2354; J2405; J2704; J7030; J7040; J7050; J7120; Q9967; U0003